=== PATIENT | male | born 1975 | race Caucasian/White ===

== ENCOUNTER 2022-12-31 00:29 | Emergency (ER) | payer BC, SELFPAY ==
--- NOTE | ~2022-12-31 | XR_ITS ---
XR shoulder RT min 2V DATE: 12/31/2022 01:29 INDICATION: Shoulder pain after heavy lifting TECHNIQUE: 4 views COMPARISON: None FINDINGS: No fracture or dislocation, periosteal reaction or bone destruction or abnormal soft tissue calcification. IMPRESSION: Negative Reviewed, dictated and finalized at location A. IMPRESSION: Negative
[2022-12-31 00:38] VITALS: BP 136/74; PULSE 97; RESP 16; TEMP 36.3; O2SAT 100
[2022-12-31 01:08] VITALS: BP 120/84; PULSE 94; RESP 16; O2SAT 100
[2022-12-31] MEDS: ACETAMINOPHEN 500 MG TABLET 1000 MG PO (01:15)
[2022-12-31] MEDS: LIDOCAINE 5% PATCH 1 PATCH TRANSDERM (01:15)
[2022-12-31] MEDS: IBUPROFEN 400 MG TABLET 800 MG PO (01:16)
[2022-12-31] MEDS: methocarbamoL 750 MG TABLET 1500 MG PO (01:21)
--- NOTE | 2022-12-31 01:26 | ED.GENADULT ---
HPI - General Adult General Chief complaint: Extremity Injury, Upper Stated complaint: shoulder pain Time Seen by Provider: 12/31/22 00:44 History of Present Illness HPI narrative: This is a 39-year-old male presenting to ED with a chief complaint of shoulder pain. Patient has been doing a large amount of physical activity over the last several days including moving furniture by himself and working on his car. Others not acute event that led to his pain afterwards he has started to have pain along his trapezius and posterior deltoid. He denies numbness tingling weakness to the extremity. Related Data Allergies Allergy/AdvReac Type Severity Reaction Status Date / Time No Known Allergies Allergy Verified 12/31/22 00:30 [facility] Family History Family History Mother Family history of diabetes mellitus in first degree relative Father Family history of coronary artery disease Social History Social History Smoking status: Current every day smoker Smoking end date: 09/24/11 Alcohol intake: current Exam Narrative: APPEARANCE: No apparent distress. Head: atraumatic. EYES: EOMI, NOSE: Atraumatic NECK: Trachea midline RESPIRATORY: No increased rate of breathing CARDIOVASCULAR: RRR, ABDOMINAL: Non-distended MUSCULOSKELETAl: Tenderness to palpation around the supraspinatus/trapezius and posterior deltoid. No bruising. 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 Radial pulses are intact. Strength in the shoulder is limited due to pain. He is unable to abduct over 90 ? Due to pain NEURO: Alert. Moving 4/4 extremities SKIN:: Patient has multiple scabs on his skin from picking PSYCHIATRIC: Normal affect Course Vital Signs Vital signs: Vital Signs Temperature 97.3 F L 12/31/22 00:38 Pulse Rate 97 12/31/22 00:38 Respiratory Rate 16 12/31/22 00:38 Blood Pressure 136/74 12/31/22 00:38 Pulse Oximetry 100 12/31/22 00:38 Oxygen Delivery Room Air 12/31/22 00:38 Temperature 97.3 F L 12/31/22 00:38 Pulse Rate 94 12/31/22 01:08 Respiratory Rate 16 12/31/22 01:08 Blood Pressure 120/84 12/31/22 01:08 Pulse Oximetry 100 12/31/22 01:08 Oxygen Delivery Room Air 12/31/22 00:38 Medical Decision Making MDM Narrative Medical decision making narrative: -Presentation: 39-year-old male presenting with shoulder pain after strenuous activity. -DDX includes but is not limited to: Shoulder strain, impingement syndrome, calcific tendinitis -Co-morbidities complicating care: Chronic tobacco use, skin picking -Social determinants of health: Patient lives with his will Osborne. 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 -External Chart Review: None -Hx from independent Sources: Sandra -Discussion of Management/Consultants: None -Independent interpretation of studies: Shoulder x-ray showed no acute fracture. Dx tests considered but not ordered: None -Procedures: None -Interventions: Motrin, Tylenol, Robaxin, lidocaine patch -Shared decision making / Disposition: Patient will be discharged with a course of NSAIDs. Can follow up with primary care physician. -RX Vital Signs Vital Signs: Vital Signs Temperature 97.3 F L 12/31/22 00:38 Pulse Rate 97 12/31/22 00:38 Respiratory Rate 16 12/31/22 00:38 Blood Pressure 136/74 12/31/22 00:38 Pulse Oximetry 100 12/31/22 00:38 Oxygen Delivery Room Air 12/31/22 00:38 Temperature 97.3 F L 12/31/22 00:38 Pulse Rate 94 12/31/22 01:08 Respiratory Rate 16 12/31/22 01:08 Blood Pressure 120/84 12/31/22 01:08 Pulse Oximetry 100 12/31/22 01:08 Oxygen Delivery Room Air 12/31/22 00:38 Discharge Plan Discharge Clinical Impression: Acute shoulder pain Patient Disposition: Home, Self-Care Condition: Stable Instructions: Antibiotic Form, Rotator Cuff Injury (ED) Additional Instructions: H
[2022-12-31 01:43] VITALS: BP 126/68; PULSE 88; RESP 14; O2SAT 98
== END 2022-12-31 01:45 | disposition home or self-care (01) ==
PROVIDERS: Emergency Provider Emergency Medicine; PCP Family Medicine
DX: M25.511 Pain in right shoulder (principal)
CPT/HCPCS: 73030; 99283; A9270